=== PATIENT | male | born 1955 | race Caucasian/White ===

== ENCOUNTER 2021-10-09 11:28 | Inpatient (IN) | payer MEDICARE, MEDICAID ==
[~2021-10-09] VITALS: Ht 180.3 cm; Wt 77.1 kg
[2021-10-09 13:16] LABS: HEMOGLOBIN 15.2 gm/dl (14.0-17.5); RED BLOOD COUNT 4.5 M/UL (4.20-5.50); WHITE BLOOD COUNT 18.9 K/UL (4.5-11.0)
[2021-10-09 13:41] LABS: BUN/CREATININE RATIO 36 (0-10)
[2021-10-09] MEDS ORDERED: ASPIRIN EC81 MG PO (15:24)
[2021-10-09] MEDS ORDERED: DOXYCYCLINE HY100 MG PO (15:25)
[2021-10-09] MEDS ORDERED: HYDROCODON-ACE1 EAC4 PO (15:26)
[2021-10-09 19:08] LABS: BUN/CREATININE RATIO 37 (0-10)
[2021-10-10 02:44] LABS: HEMOGLOBIN 13.5 gm/dl (14.0-17.5); WHITE BLOOD COUNT 17.6 K/UL (4.5-11.0)
[2021-10-10 02:48] LABS: RED BLOOD COUNT 4.04 M/UL (4.20-5.50)
[2021-10-10 03:10] LABS: BUN/CREATININE RATIO 36 (0-10)
--- NOTE | 2021-10-11 02:34 | NUR ---
LATE ENTRY 2200 PATIENT REFUSES TO WEAR BP CUFF CONTINUOUSLY
[2021-10-11 05:40] LABS: HEMOGLOBIN 14.9 gm/dl (14.0-17.5); RED BLOOD COUNT 4.44 M/UL (4.20-5.50)
[2021-10-11 05:53] LABS: WHITE BLOOD COUNT 12.5 K/UL (4.5-11.0)
[2021-10-11 06:07] LABS: BUN/CREATININE RATIO 31 (0-10)
[2021-10-12 05:17] LABS: RED BLOOD COUNT 4.01 M/UL (4.20-5.50); WHITE BLOOD COUNT 10.4 K/UL (4.5-11.0)
[2021-10-12 05:53] LABS: BUN/CREATININE RATIO 28 (0-10)
--- NOTE | 2021-10-12 18:06 | NUR ---
PT TRANSFERRED FROM PCU. PT RESTING IN BED WITH NO SIGNS OF SYMPTOMS OF DISTRESS.
[2021-10-13 05:34] LABS: HEMOGLOBIN 13.3 gm/dl (14.0-17.5); RED BLOOD COUNT 4.05 M/UL (4.20-5.50); WHITE BLOOD COUNT 10.2 K/UL (4.5-11.0)
[2021-10-13 07:02] LABS: BUN/CREATININE RATIO 20 (0-10)
[2021-10-13 12:12] LABS: ORGANISM ID Not indicated. (.); SPECIMEN SOURCE Urine (.); STREPTOCOCCUS PNEUMONIAE AG Negative (Negative)
[2021-10-13] MEDS ORDERED: ATORVASTATIN CA20 MG PO (12:41)
[2021-10-13] MEDS ORDERED: MECLIZINE HCL25 MG PO (12:41)
[2021-10-13] MEDS ORDERED: LEVOFLOXACIN750 MG PO (12:41)
== END 2021-10-13 13:51 | disposition home or self-care (01) | DRG 871 ==
LOC: ER1 11:28 → CDU 15:09 → PROG CARE 15:09 → M/S 10-12 17:50
PROVIDERS: Family Medicine; Internal Medicine; Physician Assistant Medical; ADMIT Internal Medicine Infectious Disease
DX: A41.9 Sepsis, unspecified organism (principal); J18.9 Pneumonia, unspecified organism; E87.1 Hypo-osmolality and hyponatremia; E87.2 Acidosis; Z20.822 Contact with and (suspected) exposure to COVID-19; M48.061 Spinal stenosis, lumbar region without neurogenic claudication; R65.20 Severe sepsis without septic shock; M43.16 Spondylolisthesis, lumbar region; F17.210 Nicotine dependence, cigarettes, uncomplicated; E03.9 Hypothyroidism, unspecified; J43.9 Emphysema, unspecified; R27.0 Ataxia, unspecified; M54.9 Dorsalgia, unspecified; G89.29 Other chronic pain; I25.10 Atherosclerotic heart disease of native coronary artery without angina pectoris; Z98.890 Other specified postprocedural states; Z80.0 Family history of malignant neoplasm of digestive organs; Z80.8 Family history of malignant neoplasm of other organs or systems; Z85.828 Personal history of other malignant neoplasm of skin; Z90.89 Acquired absence of other organs; Z95.1 Presence of aortocoronary bypass graft; Z79.899 Other long term (current) drug therapy; Z79.82 Long term (current) use of aspirin
CPT/HCPCS: 36415; 70450; 70496; 70498; 70551; 71045; 71250; 72158; 80048; 80053; 80202; 81001; 82550; 82553; 83036; 83605; 83735; 83880; 84100; 84439; 84443; 84484; 85025; 85027; 86140; 87040; 87081; 87086; 87278; 87899; 93005; 94640; 94664; 94760; 96374; 97110; 97116; 97161; 97166; 97530; 97535; 99285; A9577; C9113; J1650; J2543; J3370; J7030; J7070; Q9967; U0002

== ENCOUNTER → 2021-11-22 | Outpatient (CLI) | payer MEDICARE ==
[~2021-11-22] MED LIST: ASPIRIN EC81 MG PO; ATORVASTATIN CA20 MG PO; DOXYCYCLINE HY100 MG PO; HYDROCODON-ACE1 EAC4 PO; LEVOFLOXACIN750 MG PO; MECLIZINE HCL25 MG PO
== END ==
LOC: CT 11-14 11:00
DX: J18.1 Lobar pneumonia, unspecified organism (principal); K74.60 Unspecified cirrhosis of liver
CPT/HCPCS: 71250

== ENCOUNTER → 2021-11-29 | Outpatient (CLI) | payer MEDICARE | LOC: HEART 5 15:45 | DX: R06.00 Dyspnea, unspecified (principal) | CPT/HCPCS: 94060; 94729 ==